=== PATIENT | female | born 1970 | race Caucasian/White ===

== ENCOUNTER 2016-07-10 13:08 | Emergency (ER) | payer MEDICAID ==
[2016-07-10 13:26] VITALS: BP 119/71
[2016-07-10] MEDS ORDERED: DIPHTH,PERTUSS(ACELL),TET VAC 0.5 ML VIAL IM ONE ×2 (13:54→14:05)
--- NOTE | 2016-07-10 14:03 | ERNOTE ---
Medical Problem HPI - Narrative Date of Service: 07/10/16 - General Chief Complaint: General Assessment Time Seen by Provider: 07/10/16 13:50 Source: patient Exam Limitations: no limitations - Immun/Allergies/Home Medications Immunizations: IMMUNIZATION HX Immunizations Up to Date Yes History of Influenza Vaccine No Hx Pneumococcal Vaccination No Allergies/Adverse Reactions: Allergies No Known Allergies Allergy (Verified 07/10/16 13:28) Home Medications: HOME MEDICATIONS NK [No Home Medication] 07/10/16 [Last Taken Unknown] - History of Present History Narrative: Patient reported she step on a nail didn't puncture. Patient stated she needed a Tdap to be up to date. Last Tdap was on 2009. Timing: other - Patient needs a vaccine Modifying Factors - (Improves): Present: other - nothing Modifying Factors - (Worsens): Present: other - nothing Review of Systems - Review of Systems Constitutional: Absent: fever EYE: Present: no symptoms reported ENT: Present: no symptoms reported Respiratory: Present: no symptoms reported Cardiology: Present: no symptoms reported Gastrointestinal/Abdominal: Present: no symptoms reported Genitourinary: Present: no symptoms reported Musculoskeletal: Present: no symptoms reported Skin: Present: no symptoms reported Neurological: Present: no symptoms reported Endocrine: Present: no symptoms reported Hematologic/Lymphatic: Present: no symptoms reported Psych: Present: no symptoms reported All Other Systems: All systems neg except as marked - Patient's Past Medical History Patient History - Cancer: No Hx of Cancer Patient History - Surgical Procedures: Other - Social History Living Situations: home Smoking Status: Never smoker Have you smoked in the past 12 months: Yes Physical Exam - Physical Exam General Appearance: Present: wd/wn, alert, no apparent distress Ears, Nose, Throat: Present: normal ENT inspection, hearing grossly normal, normal pharynx Neck: Present: normal inspection, nontender Respiratory: Present: no respiratory distress, normal breath sounds, no accessory muscle use, chest nontender, lungs clear Cardiovascular/Chest: Present: regular rate, rhythm, no murmur, normal peripheral pulses Gastrointestinal/Abdominal: Present: normal bowel sounds, nontender, nondistended, soft, no organomegaly Extremity Exam: Present: normal inspection, non-tender, no edema, normal range of motion Neurological Exam: Present: alert, oriented, normal mood/affect, no motor/ sensory deficits Skin Exam: Present: other - Patient has no detectable cut and no puncture wound noticed on evaluation. Absent: cyanosis, jaundice, pallor, skin rash ED Progress - Vital Signs Patient's Vital Signs:: I have reviewed the patient's vital signs. Vital Signs: Vital Signs 07/10/16 13:21 Temperature 35.9 C L Pulse Rate 71 Respiratory 16 Rate Blood Pressure 119/71 O2 Sat by Pulse 98 Oximetry - Progress/Reassessment Chief Complaint: General Assessment - Transfer of Care Expected Disposition: Discharge Plan - Plan Plan: Patient will be given Tdap as requested. Patient is due for a booster dose. Departure - Departure Clinical Impression: Well adult Disposition: Home self-care Condition: Stable Instructions: Wound Infection, [id number]
== END 2016-07-10 14:15 | disposition home or self-care (01) ==
LOC: ER 13:08
DX: Z03.89 Encounter for observation for other suspected diseases and conditions ruled out (principal); Z23 Encounter for immunization